=== PATIENT | female | born 1950 | race Caucasian/White ===

== ENCOUNTER 2024-09-06 16:36 | Observation (INO) | payer MEDICARE, OTHER ==
--- NOTE | 2024-09-06 17:03 | ED ---
Skin/Abscess/FB HPI - General Source: patient, family, RN notes reviewed Mode of arrival: ambulatory Limitations: no limitations <Jaqueline Hagan - Last Filed: 09/06/24 17:04> - General Source: patient, family, RN notes reviewed, old records reviewed Mode of arrival: ambulatory Limitations: no limitations - History of Present Illness MD complaint: rash, discoloration, other (Swelling and erythema left lower extremity) -: days(s) Location: LLE, L foot Severity: severe Severity scale (1-10): 10 Quality: aching Consistency: constant Improves with: none Worsens with: none Context: recent illness Associated symptoms: chills, nausea, arthralgias, myalgias Treatments Prior to Arrival: none <Rajendra Barillas - Last Filed: 09/12/24 19:48> - General Chief complaint: Skin/Abscess/Foreign Body Stated complaint: Left Leg Pain Time Seen by Provider: 09/06/24 16:50 - History of Present Illness Initial comments: Quick [id number] female with history of PAD and femoral bypass presenting for complaints of left lower extremity pain, erythema, edema started yesterday evening. Daughter states that patient recently had cellulitis of the left lower extremity and was admitted to the hospital for multiple days due to this. Patient denies fevers, chills, nausea or vomiting. Patient has history of blood clots and denies chest pain or difficulty breathing. (Jaqueline Hagan) This is a 74-year-old female to the ER for evaluation. Patient coming in with severe left lower extremity pain redness and swelling with history of recurrent cellulitis in his left leg. Patient is on blood thinners with prior history of blood clots (Rajendra Barillas) - Related Data Home Medications Medication Instructions Recorded Confirmed Clopidogrel [Plavix] 75 mg PO DAILY 08/12/24 09/07/24 Furosemide [Lasix] 40 mg PO DAILY 08/12/24 09/07/24 Gabapentin [Neurontin] 100 mg PO BID PRN 08/12/24 09/07/24 Gabapentin [Neurontin] 200 mg PO HS PRN 08/12/24 09/07/24 Pantoprazole Sodium [Protonix] 20 mg PO DAILY 08/12/24 09/07/24 Potassium Chloride ER [K-Dur 10] 10 meq PO DAILY 08/12/24 09/07/24 Pramipexole [Mirapex] 0.5 mg PO TID 08/12/24 09/07/24 Rosuvastatin Calcium 5 mg PO HS 08/12/24 09/07/24 Trihexyphenidyl [Artane] 2 mg PO BID 08/12/24 09/07/24 hydrOXYzine HCL [Atarax] 25 mg PO TID PRN 08/12/24 09/07/24 Previous Rx's Medication Instructions Recorded Cephalexin [Keflex] 500 mg PO Q8HR 7 Days #21 cap 09/11/24 HYDROcodone/APAP 5-325MG [[place] 1 each PO Q6HR PRN 3 Days #12 tab 09/11/24 5-325] Allergies Allergy/AdvReac Type Severity Reaction Status Date / Time ibuprofen Allergy Anaphylaxis Verified 09/07/24 11:46 Review of Systems ROS Other: All systems not noted in ROS Statement are negative. <Jaqueline Hagan - Last Filed: 09/06/24 17:04> ROS Other: All systems not noted in ROS Statement are negative. <Rajendra Barillas - Last Filed: 09/12/24 19:48> ROS Statement: Those systems with pertinent positive or pertinent negative responses have been documented in the HPI. Past Medical History Past Medical History: Hyperlipidemia, Hypertension Additional Past Medical History / Comment(s): right above the knee amuptation, RLS, tremors, Parkinsons. Bilateral lower extremity peripheral vascular disease. History of Any Multi-Drug Resistant Organisms: None Reported Additional Past Surgical History / Comment(s): Femoral to femoral bypass (occluded). Right [id number] amputation. Past Psychological History: Anxiety Smoking Status: Former smoker Past Alcohol Use History: None Reported Past Drug Use History: None Reported <Jaqueline Hagan - Last Filed: 09/06/24 17:04> General Exam Limitations: no limitations <Jaqueline Hagan - Last Filed: 09/06/24 17:04> General appearance: alert, in no apparent distress Head exam: Present: atraumatic, normocephalic, normal inspection Eye exam: Present: normal appearance, PERRL, EOMI. Absent: scleral icterus, conjunctival injection, periorbital swelling ENT exam: Present: normal exam, mucous membranes moist Neck exam: Present: normal inspection. Absent: tenderness, meningismus, lymphadenopathy Respiratory exam: Present: normal lung sounds bilaterally. Absent: respiratory distress, wheezes, rales, rhonchi, stridor Cardiovascular Exam: Present: regular rate, normal rhythm, normal heart sounds. Absent: systolic murmur, diastolic murmur, rubs, gallop, clicks GI/Abdominal exam: Present: soft, normal bowel sounds. Absent: distended, tenderness, guarding, rebound, rigid Extremities exam: Present: normal inspection, full ROM, normal capillary refill. Absent: tenderness, pedal edema, joint swelling, calf tenderness Back exam: Present: normal inspection Neurological exam: Present: alert, oriented X3, CN II-XII intact Psychiatric exam: Present: normal affect, normal mood Skin exam: Present: warm, dry, intact, normal color. Absent: rash <Rajendra Barillas Last Filed: 09/12/24 19:48> - General Exam Comments Initial Comments: Visual Physical Exam Vital signs reviewed General: Well-appearing, nontoxic, no acute distress. Head: Normocephalic, atraumatic Eyes: PERRLA, EOMI ENT: Airway patent Chest: Nonlabored breathing Skin: No visual rash, normal skin tone Neuro: Alert and oriented 3 Musculoskeletal: No gross abnormalities (Stieler,Jaqueline) Course <Rajendra Barillas - Last Filed: 09/12/24 19:48> Vital Signs 09/06/24 09/07/24 09/07/24 16:45 00:10 00:13 Temperature 98.4 F 98.8 F Pulse Rate 80 86 Pulse Rate [ Pulse Oximetery ] Respiratory 18 17 Rate Blood Pressure 86/53 76/38 Blood Pressure [Left Arm] O2 Sat by Pulse 98 Oximetry 09/07/24 09/07/24 09/07/24 00:25 00:37 00:46 Temperature 98.6 F Pulse Rate 76 89 86 Pulse Rate [ Pulse Oximetery ] Respiratory 18 16 16 Rate Blood Pressure 86/50 126/56 122/62 Blood Pressure [Left Arm] O2 Sat by Pulse 94 L 94 L 98 Oximetry 09/07/24 09/07/24 09/07/24 02:41 04:46 07:43 Temperature 98.4 F 98.4 F Pulse Rate 75 86 79 Pulse Rate [ Pulse Oximetery ] Respiratory 16 16 20 Rate Blood Pressure 107/49 124/73 123/61 Blood Pressure [Left Arm] O2 Sat by Pulse 98 98 100 Oximetry 09/07/24 09/07/24 11:00 21:36 Temperature 98.2 F 98.5 F Pulse Rate 86 Pulse Rate [ 82 Pulse Oximetery ] Respiratory 16 16 Rate Blood Pressure 125/65 Blood Pressure 112/64 [Left Arm] O2 Sat by Pulse 95 96 Oximetry - Reevaluation(s) Reevaluation #1: 09/07/24 03:12 Medical records reviewed (Rajendra Barillas) Reevaluation #2: 09/07/24 03:12 Patient symptoms unchanged (Rajendra Barillas) Reevaluation #3: 09/07/24 03:12 Patient informed of results questions answered (Rajendra Barillas) Reevaluation #4: Was pt. sent in by a medical professional or institution (, PA, FIRE INVESTIGATION MANAGER, urgent care, hospital, or halfway...) When possible be specific @ -no Did you speak to anyone other than the patient for history (EMS, parent, family, police, friend...)? What history was obtained from this source @ -no Did you review nursing and triage notes (agree or disagree)? Why? @ -agree Are old charts reviewed (outside hosp., previous admission, EMS record, old EKG, old radiological studies, urgent care reports/EKG's, halfway records)? Report findings @ -yes Differential Diagnosis (chest pain, altered mental status, abdominal pain women, abdominal pain men, vaginal bleeding, weakness, fever, dyspnea, syncope, headache, dizziness, GI bleed, back pain, seizure, CVA, palpatations, mental health, musculoskeletal)? @ -prior EKG interpreted by me (3pts min.). @ -yes X-rays interpreted by me (1pt min.). @ -yes negative for acute disease CT interpreted by me (1pt min.). @ -no U/S interpreted by me (1pt. min.). @ -yes negative for acute disease What testing was considered but not performed or refused? (CT, X-rays, U/S, labs)? Why? @ -none What meds were considered but not given or refused? Why? @ -none Did you discuss the management of the patient with other professionals (professionals i.e. DrChristian, PA, FIRE INVESTIGATION MANAGER, lab, RT, psych nurse, social insurance specialist, vice president of product marketing, teacher, police patrol officer, skilled nursing case manager)? Give summary @ -no Was smoking cessation discussed for >3mins.? @ -no Was critical care preformed (if so, how long)? @ -no Were there social determinants of health that impacted care today? How? (Homelessness, low income, unemployed, alcoholism, drug addiction, transportation, low edu. Level, literacy, decrease access to med. care, skilled nursing, rehab)? @ -none Was there de-escalation of care discussed even if they declined (Discuss DNR or withdrawal of care, Hospice)? DNR status @ -no What co-morbidities impacted this encounter? (DM, HTN, Smoking, COPD, CAD, Cancer, CVA, ARF, Chemo, Hep., AIDS, mental health diagnosis, sleep apnea, morbid obesity)? @ -none Was patient admitted / discharged? Hospital course, mention meds given and route, prescriptions, significant lab abnormalities, going to OR and other pertinent info. @ - 74 female with severe left lower extremity cellulitis and infection, patient placed on IV antibiotics, x-ray and ultrasound left lower extremity are negative and patient will admit for IV antibiotics for severe cellulitis with history of severe PAD Admitted Undiagnosed new problem with uncertain prognosis? @ -no Drug Therapy requiring intensive monitoring for toxicity (Heparin, Nitro, Insulin, Cardizem)? @ -no Were any procedures done? @ -no Diagnosis/symptom? @ -Severe lower extremity cellulitis Acute, or Chronic, or Acute on Chronic? @ -Acute Uncomplicated (without systemic symptoms) or Complicated (systemic symptoms)? @ -Complicated Side effects of treatment? @ -no Exacerbation, Progression, or Severe Exacerbation? @ -exacerbation Poses a threat to life or bodily function? How? (Chest pain, USA, SC, pneumonia, PE, COPD, DKA, ARF, appy, cholecystitis, CVA, Diverticulitis, Homicidal, Suicidal, threat to staff... and all critical care pts) @ -yes extremes of age 46 (Rajendra Barillas) - Consultations Consultation #1: Spoke with [facility] who agrees to admit this patient (Rajendra Barillas) Medical Decision Making <Jaqueline Hagan - Last Filed: 09/06/24 17:04> - Lab Data Result diagrams: 09/11/24 03:09 09/11/24 03:09 - EKG Data -: EKG Interpreted by Me (EKG is sinus 82 WV 160 QRS 91 QTc 414) - Radiology Data Radiology results: report reviewed (X-ray left lower extremity, ultrasound left lower extremity for DVT is negative), image reviewed <Rajendra Barillas - Last Filed: 09/12/24 19:48> - Medical Decision Making I completed the quick note portion of this chart signed Jaqueline Hagan PA-C (Jaqueline Hagan) 74 female with severe left lower extremity cellulitis and infection, patient placed on IV antibiotics, x-ray and ultrasound left lower extremity are negative and patient will admit for IV antibiotics for severe cellulitis with history of severe PAD (Rajendra Barillas) - Lab Data Lab Results 09/06/24 09/06/24 09/06/24 Range/Units 18:57 18:57 18:57 WBC 16.07 H (4.50-10.00) 10*3/uL RBC 4.76 (4.10-5.20) 10*6/uL Hgb 14.2 (12.0-15.0) g/dL Hct 42.0 (37.2-46.3) % MCV 88.2 (80.0-97.0) fL MCH 29.8 (27.0-32.0) pg MCHC 33.8 (32.0-37.0) g/dL Plt Count 100 L (140-440) 10*3/uL MPV 9.1 L (9.5-12.2) fL Immature Gran % (Auto) 0.6 % Neutrophils % 91.6 % Lymphocytes % 4.4 % Monocytes % 2.9 % Eosinophils % 0.1 % Basophils % 0.4 % Immature Gran # 0.09 H (0.00-0.04) 10*3/uL Neutrophils # 14.73 H (1.80-7.70) 10*3/uL Lymphocytes # 0.71 L (0.90-5.00) 10*3/uL Monocytes # 0.46 (0.20-1.00) 10*3/uL Eosinophils # 0.01 L (0.04-0.35) 10*3/uL Basophils # 0.07 (0.00-0.10) 10*3/uL Manual Slide Review Performed Immature Plt Fraction 1.6 (1.1-6.1) % Sodium 134 L (137-145) mmol/L Potassium 4.2 (3.5-5.1) mmol/L Chloride 103 (98-107) mmol/L Carbon Dioxide 22 (22-30) mmol/L Anion Gap 9 mmol/L BUN 12 (7-17) mg/dL Creatinine 0.61 (0.52-1.04) mg/dL Est GFR (CKD-EPI)AfAm >90 (>60 ml/min/1.73 sqM) Est GFR (CKD-EPI)NonAf 88 (>60 ml/min/1.73 sqM) Glucose 163 H (74-99) mg/dL Lactic Ac Sepsis Rflx Plasma Lactic Acid Ron 2.1 H* (0.7-2.0) mmol/L Calcium 9.9 (8.4-10.2) mg/dL Phosphorus (2.5-4.5) mg/dL Magnesium (1.6-2.3) mg/dL Total Bilirubin 1.1 (0.2-1.3) mg/dL AST 29 (14-36) U/L ALT 26 (4-34) U/L Alkaline Phosphatase 79 (38-126) U/L C-Reactive Protein 0.9 (<1.0) mg/dL Total Protein 6.5 (6.3-8.2) g/dL Albumin 4.1 (3.5-5.0) g/dL 09/06/24 09/07/24 Range/Units 19:55 00:00 WBC (4.50-10.00) 10*3/uL RBC (4.10-5.20) 10*6/uL Hgb (12.0-15.0) g/dL Hct (37.2-46.3) % MCV (80.0-97.0) fL MCH (27.0-32.0) pg MCHC (32.0-37.0) g/dL Plt Count (140-440) 10*3/uL MPV (9.5-12.2) fL Immature Gran % (Auto) % Neutrophils % % Lymphocytes % % Monocytes % % Eosinophils % % Basophils % % Immature Gran # (0.00-0.04) 10*3/uL Neutrophils # (1.80-7.70) 10*3/uL Lymphocytes # (0.90-5.00) 10*3/uL Monocytes # (0.20-1.00) 10*3/uL Eosinophils # (0.04-0.35) 10*3/uL Basophils # (0.00-0.10) 10*3/uL Manual Slide Review Immature Plt Fraction (1.1-6.1) % Sodium (137-145) mmol/L Potassium (3.5-5.1) mmol/L Chloride (98-107) mmol/L Carbon Dioxide (22-30) mmol/L Anion Gap mmol/L BUN (7-17) mg/dL Creatinine (0.52-1.04) mg/dL Est GFR (CKD-EPI)AfAm (>60 ml/min/1.73 sqM) Est GFR (CKD-EPI)NonAf (>60 ml/min/1.73 sqM) Glucose (74-99) mg/dL Lactic Ac Sepsis Rflx Y Plasma Lactic Acid Ron (0.7-2.0) mmol/L Calcium (8.4-10.2) mg/dL Phosphorus 3.6 (2.5-4.5) mg/dL Magnesium 1.7 (1.6-2.3) mg/dL Total Bilirubin (0.2-1.3) mg/dL AST (14-36) U/L ALT (4-34) U/L Alkaline Phosphatase (38-126) U/L C-Reactive Protein (<1.0) mg/dL Total Protein (6.3-8.2) g/dL Albumin (3.5-5.0) g/dL Disposition <Jaqueline Hagan - Last Filed: 09/06/24 17:04> Is patient prescribed a controlled substance at d/c from ED?: No Time of Disposition: 01:00 <Rajendra Barillas - Last Filed: 09/12/24 19:48> Clinical Impression: Cellulitis of left leg, Cellulitis Disposition: ADMITTED IP TO THIS HOSP Condition: Fair
[2024-09-06 19:06] LABS: Basophils # (A) 0.07 10*3/uL (0.00-0.10); Basophils % (A) 0.4 %; Eosinophils # (A) 0.01 10*3/uL (0.04-0.35); Eosinophils % (A) 0.1 %; HGB 14.2 g/dL (12.0-15.0); Immature Platelet Fraction 1.6 % (1.1-6.1); Lymphocytes # (A) 0.71 10*3/uL (0.90-5.00); Lymphocytes % (A) 4.4 %; MCH 29.8 pg (27.0-32.0); MCHC 33.8 g/dL (32.0-37.0); MCV 88.2 fL (80.0-97.0); Mean Platelet Volume 9.1 fL (9.5-12.2); Monocytes # (A) 0.46 10*3/uL (0.20-1.00); Monocytes % (A) 2.9 %; Neutrophils # (A) 14.73 10*3/uL (1.80-7.70); Neutrophils % (A) 91.6 %; Platelet Count 100 10*3/uL (140-440); RBC 4.76 10*6/uL (4.10-5.20); RDW 13.5 % (11.5-14.5); WBC 16.07 10*3/uL (4.50-10.00)
[2024-09-06 19:24] LABS: ALT 26 U/L (4-34); AST 29 U/L (14-36); African American GFR (CKD) >90 (>60 ml/min/1.73 sqM); Albumin 4.1 g/dL (3.5-5.0); Alkaline Phosphatase 79 U/L (38-126); Anion Gap 9 mmol/L; Blood Urea Nitrogen 12 mg/dL (7-17); C Reactive Protein 0.9 mg/dL (<1.0); Calcium 9.9 mg/dL (8.4-10.2); Carbon Dioxide 22 mmol/L (22-30); Chloride 103 mmol/L (98-107); Glucose 163 mg/dL (74-99); Non-African American GFR(CKD) 88 (>60 ml/min/1.73 sqM); Potassium 4.2 mmol/L (3.5-5.1); Sodium 134 mmol/L (137-145); Total Bilirubin 1.1 mg/dL (0.2-1.3); Total Protein 6.5 g/dL (6.3-8.2)
[2024-09-06] MEDS ORDERED: VANCOMYCIN IV PER PHARMACY 1 EACH MISC MISCELLANE PRN (22:19)
[2024-09-06] MEDS: SODIUM CHLORIDE 0.9% 1,000 ML IV SCH (23:51)
[2024-09-07] MEDS: VANCOMYCIN 1,250 MG in SODIUM CHLORIDE 0.9% 250 ML IVPB SCH (00:23)
--- NOTE | 2024-09-07 00:25 | US ---
Exam: US VENOUS LEFT LOWER EXTREMITY DATE OF EXAM: 09/06/2024 11:17 PM COMPARISON: 08/12/24 CLINICAL INDICATION: Female, 74 years old with history of pain; patient states left leg pain, swelling and redness in calf. Hx right leg amputee. States hx of DVT. Not on thinners, Pain TECHNIQUE: The lower extremity deep venous system is examined utilizing real time linear array sonography with graded compression, color doppler sonography, and spectral doppler. 16 images SIDE PERFORMED: Left FINDINGS: VESSELS IMAGED: Femoral Vein Popliteal Vein Small Saphenous Vein * Proximal Calf Veins (* superficial vessels) patient scanned in wheelchair with shorts on. Exam is limited Left Leg: exam begins at the proximal femoral vein due to above limitations. Appears negative for DVT as best visualized, Color Doppler imaging shows patency of the vessels. Spectral waveforms are within normal limits. Impression: No DVT
--- NOTE | 2024-09-07 00:34 | XR ---
EXAM: XR Left Tibia and Fibula, 2 Views CLINICAL HISTORY: ED for c/o redness and swelling to left leg starting today. TECHNIQUE: Frontal and lateral views of the left tibia and fibula. COMPARISON: No relevant prior studies available. FINDINGS: Bones/joints: Osteopenia. No fracture or dislocation. Soft tissues: Moderate diffuse subcutaneous soft tissue edema. No radiopaque foreign body. Vasculature: Peripheral vascular calcifications. IMPRESSION: Moderate diffuse subcutaneous soft tissue edema
[2024-09-07 00:35] LABS: Magnesium 1.7 mg/dL (1.6-2.3); Phosphorus 3.6 mg/dL (2.5-4.5)
[2024-09-07] MEDS ORDERED: NALOXONE 0.4 MG/ML 1 ML VIAL IV PRN (01:54)
[2024-09-07] MEDS ORDERED: MORPHINE SULFATE 4 MG/ML SYRINGE IV PRN (01:54)
[2024-09-07] MEDS ORDERED: ONDANSETRON 4 MG/2 ML VIAL IVP PRN (01:54)
[2024-09-07] MEDS ORDERED: ACETAMINOPHEN TAB 500 MG TAB PO PRN (11:27)
[2024-09-07] MEDS ORDERED: GABAPENTIN 100 MG CAP PO PRN (12:20)
[2024-09-07] MEDS ORDERED: hydrOXYzine HCL 25 MG TAB PO PRN (12:20)
[2024-09-07] MEDS: ATORVASTATIN 10 MG TAB PO SCH (12:36)
[2024-09-07] MEDS: CLOPIDOGREL 75 MG TAB PO SCH (12:36)
[2024-09-07] MEDS: MORPHINE SULFATE 2 MG/ML SYRINGE IVP PRN (12:37)
[2024-09-07] MEDS: PRAMIPEXOLE 0.5 MG TAB PO SCH (16:08)
--- NOTE | 2024-09-07 16:08 | P.HPIM ---
History of Present Illness H&P Date: 09/07/24 History of present illness: This is a 74-year-old female with past medical history significant for pe ripheral arterial disease, femoral bypass, hypertension, hyperlipidemia, right AKA, RLS, Parkinson disease who presented to ER with a complaint of left lower extremity swelling pain and edema, tenderness for the last few days. Patient recently had cellulitis of left lower extremity, was admitted to hospital for multiple days and was discharged home. Now presented again with worsening lower extremity pain and swelling redness and tenderness. Patient denied any fever or chills. Patient is afebrile, heart rate 82, respiratory rate 16, blood pressure 112/64, saturating 95% on room air. WBC 16.07, hemoglobin 14.2, platelet 100. BMP unremarkable. Lactic acid 2.1. 45 unremarkable. X-ray left lower extremity showed soft tissue edema Ultrasound venous negative for DVT. Assessment and plan: Left lower extremity cellulitis: Recently admitted for left lower extremity cellulitis, required IV antibiotics Now presented again with left lower extremity swelling, pain, redness, warmth. Monitor vitals and labs. Antibiotics cefazolin Infectious disease consulted Elevate lower extremity Peripheral arterial disease: Hypertension Restless leg syndrome Hyperlipidemia Neuropathy Continue home meds Thrombocytopenia: Secondary toAbove, reactive Monitor CBC DVT prophylaxis Subcutaneous Lovenox Monitor vital signs and labs Labs and medication were reviewed. Continue same treatment. Further recommendations as per clinical course of the patient PHYSICAL EXAMINATION: GENERAL: The patient is A&O x3, NAD HEENT: EOMI, Sclerae anicteric, Moist Mucous membranes Neck: Supple, Non tender, No JVD PULMONARY: Equal breath souds B/L, No wheezing, No crackles. CARDIOVASCULAR: S1, S2 present. No murmurs, rubs, or gallops. ABDOMEN: Soft, nontender, nondistended, normoactive bowel sounds. No guarding or rebound tenderness. MUSCULOSKELETAL: Left lower extremity edema, erythema, warmth, tenderness, extending from dorsum of foot to below knee. NEUROLOGICAL: CN 2-12 grossly intact. No FND REVIEW OF SYSTEMS: CONSTITUTIONAL: Complaining of fatigue. HEENT: No recent visual problems or hearing problems. Denied any sore throat. CARDIOVASCULAR: No chest pain, orthopnea, PND, no palpitations, no syncope. PULMONARY: No shortness of breath, no cough, no hemoptysis. GASTROINTESTINAL: No diarrhea, no nausea, no vomiting, no abdominal pain. NEUROLOGICAL: No headaches, no weakness, no numbness. HEMATOLOGICAL: Denies any bleeding or petechiae. GENITOURINARY: Denies any burning micturition, frequency, or urgency. MUSCULOSKELETAL/RHEUMATOLOGICAL: Complaining of left lower extremity swelling, pain, warmth, tenderness. ENDOCRINE: Denies any polyuria or polydipsia. The rest of the 14-point review of systems is negative. Dictation was produced using [employer] software. please excuse any grammatical, word or spelling errors. Past Medical History Past Medical History: Hyperlipidemia, Hypertension Additional Past Medical History / Comment(s): right above the knee amuptation, RLS, tremors, Parkinsons. Bilateral lower extremity peripheral vascular disease. History of Any Multi-Drug Resistant Organisms: None Reported Additional Past Surgical History / Comment(s): Femoral to femoral bypass (occluded). Right [id number] amputation. Past Psychological History: Anxiety Smoking Status: Former smoker Past Alcohol Use History: None Reported Past Drug Use History: None Reported Medications and Allergies Home Medications Medication Instructions Recorded Confirmed Type Clopidogrel [Plavix] 75 mg PO DAILY 08/12/24 09/07/24 History Furosemide [Lasix] 40 mg PO DAILY 08/12/24 09/07/24 History Gabapentin [Neurontin] 100 mg PO BID PRN 08/12/24 09/07/24 History Gabapentin [Neurontin] 200 mg PO HS PRN 08/12/24 09/07/24 History Pantoprazole Sodium [Protonix] 20 mg PO DAILY 08/12/24 09/07/24 History Potassium Chloride ER [K-Dur 10] 10 meq PO DAILY 08/12/24 09/07/24 History Pramipexole [Mirapex] 0.5 mg PO TID 08/12/24 09/07/24 History Rosuvastatin Calcium 5 mg PO HS 08/12/24 09/07/24 History Trihexyphenidyl [Artane] 2 mg PO BID 08/12/24 09/07/24 History hydrOXYzine HCL [Atarax] 25 mg PO TID PRN 08/12/24 09/07/24 History Allergies Allergy/AdvReac Type Severity Reaction Status Date / Time ibuprofen Allergy Anaphylaxis Verified 09/07/24 11:46 Physical Exam Vitals: Vital Signs Temp Pulse Pulse Resp BP BP Pulse Ox 09/07/24 11:00 98.2 F 82 16 112/64 95 09/07/24 07:43 98.4 F 79 20 123/61 100 09/07/24 04:46 98.4 F 86 16 124/73 98 09/07/24 02:41 75 16 107/49 98 09/07/24 00:46 86 16 122/62 98 09/07/24 00:37 89 16 126/56 94 L 09/07/24 00:25 98.6 F 76 18 86/50 94 L 09/07/24 00:13 98.8 F 09/07/24 00:10 86 17 76/38 09/06/24 16:45 98.4 F 80 18 86/53 98 Results CBC & Chem 7: 09/06/24 18:57 09/06/24 18:57 Labs: Abnormal Lab Results - Last 24 Hours (Table) 09/06/24 09/06/24 09/06/24 Range/Units 18:57 18:57 18:57 WBC 16.07 H (4.50-10.00) 10*3/uL Plt Count 100 L (140-440) 10*3/uL MPV 9.1 L (9.5-12.2) fL Immature Gran # 0.09 H (0.00-0.04) 10*3/uL Neutrophils # 14.73 H (1.80-7.70) 10*3/uL Lymphocytes # 0.71 L (0.90-5.00) 10*3/uL Eosinophils # 0.01 L (0.04-0.35) 10*3/uL Sodium 134 L (137-145) mmol/L Glucose 163 H (74-99) mg/dL Plasma Lactic Acid Ron 2.1 H* (0.7-2.0) mmol/L
[2024-09-07] MEDS: HYDROcodone/APAP 5-325MG 1 EACH TAB PO PRN (16:18)
[2024-09-07] MEDS: ENOXAPARIN 40 MG/0.4 ML SYRINGE SQ SCH (17:18)
--- NOTE | 2024-09-07 23:01 | P.CONS ---
History of Present Illness - Reason for Consult Consult date: 09/07/24 Left leg cellulitis Requesting physician: Germán Fitch - Chief Complaint Left leg swelling and redness x 1 day - History of Present Illness Patient is a 74-year-old female with a past medical history significant for hypertension hyperlipidemia Parkinson disease previous history of right lfmiq-ect-[id number] amputation because of nonhealing persistent knee infection and did have a history of recurrent left lower extremity cellulitis patient has been brought into the hospital concerning for increasing swelling and redness to the left lower extremity that apparently started the day before presentation to the hospital patient denies any history of any trauma she did have diffuse swelling redness that progressed rather quickly did have a dull aching pain to the left leg moderate intensity without radiation patient currently do not have any skin breakdown or open wound or any drainage patient on presentation to the hospital was afebrile and no fever Hemoccult subsequently patient was not tachycardic hypotensive or hypoxic she did have a white count of 16.07 with a left shift creatinine 0.61 lactic acid 2.1 liver enzymes are normal patient did have left leg Doppler was negative for DVT x-rays were negative patient was admitted to the hospital she was started on vancomycin infectious disease was consulted for further management of antibiotic therapy Review of Systems Positive point and negatives has been mentioned in the HPI, complete review of systems was performed and all other systems are negative Past Medical History Past Medical History: Hyperlipidemia, Hypertension Additional Past Medical History / Comment(s): right above the knee amuptation, RLS, tremors, Parkinsons. Bilateral lower extremity peripheral vascular disease. History of Any Multi-Drug Resistant Organisms: None Reported Additional Past Surgical History / Comment(s): Femoral to femoral bypass (occluded). Right xxyzs-tul-vxnx amputation. Past Psychological History: Anxiety Smoking Status: Former smoker Past Alcohol Use History: None Reported Past Drug Use History: None Reported Medications and Allergies Home Medications Medication Instructions Recorded Confirmed Type Clopidogrel [Plavix] 75 mg PO DAILY 08/12/24 09/07/24 History Furosemide [Lasix] 40 mg PO DAILY 08/12/24 09/07/24 History Gabapentin [Neurontin] 100 mg PO BID PRN 08/12/24 09/07/24 History Gabapentin [Neurontin] 200 mg PO HS PRN 08/12/24 09/07/24 History Pantoprazole Sodium [Protonix] 20 mg PO DAILY 08/12/24 09/07/24 History Potassium Chloride ER [K-Dur 10] 10 meq PO DAILY 08/12/24 09/07/24 History Pramipexole [Mirapex] 0.5 mg PO TID 08/12/24 09/07/24 History Rosuvastatin Calcium 5 mg PO HS 08/12/24 09/07/24 History Trihexyphenidyl [Artane] 2 mg PO BID 08/12/24 09/07/24 History hydrOXYzine HCL [Atarax] 25 mg PO TID PRN 08/12/24 09/07/24 History Allergies Allergy/AdvReac Type Severity Reaction Status Date / Time ibuprofen Allergy Anaphylaxis Verified 09/07/24 11:46 Physical Exam Vitals: Vital Signs Temp Pulse Pulse Resp BP BP Pulse Ox 09/07/24 11:00 98.2 F 82 16 112/64 95 09/07/24 07:43 98.4 F 79 20 123/61 100 09/07/24 04:46 98.4 F 86 16 124/73 98 09/07/24 02:41 75 16 107/49 98 09/07/24 00:46 86 16 122/62 98 09/07/24 00:37 89 16 126/56 94 L 09/07/24 00:25 98.6 F 76 18 86/50 94 L 09/07/24 00:13 98.8 F 09/07/24 00:10 86 17 76/38 09/06/24 16:45 98.4 F 80 18 86/53 98 Intake and Output 09/06/24 09/07/24 09/07/24 22:59 06:59 14:59 Other: Weight 63.503 kg GENERAL DESCRIPTION: Elderly female lying in bed, no distress. No tachypnea or accessory muscle of respiration use. HEENT: Shows Pallor , no scleral icterus. Oral mucous membrane is dry. No pharyngeal erythema or thrush NECK: Trachea central, no thyromegaly. LUNGS: Unlabored breathing. Clear to auscultation anteriorly. No wheeze or crackle. HEART: S1, S2, regular rate and rhythm. No loud murmur ABDOMEN: Soft, no tenderness , guarding or rigidity, no organomegaly EXTREMITIES: Left leg with diffuse swelling and redness did not have any open wound or athlete's foot SKIN: No rash, no masses palpable. NEUROLOGICAL: The patient is awake, alert, oriented x3, mood and affect normal. Results CBC & Chem 7: 09/08/24 05:13 09/08/24 05:13 Labs: Abnormal Lab Results - Last 24 Hours (Table) 09/06/24 09/06/24 09/06/24 Range/Units 18:57 18:57 18:57 WBC 16.07 H (4.50-10.00) 10*3/uL Plt Count 100 L (140-440) 10*3/uL MPV 9.1 L (9.5-12.2) fL Immature Gran # 0.09 H (0.00-0.04) 10*3/uL Neutrophils # 14.73 H (1.80-7.70) 10*3/uL Lymphocytes # 0.71 L (0.90-5.00) 10*3/uL Eosinophils # 0.01 L (0.04-0.35) 10*3/uL Sodium 134 L (137-145) mmol/L Glucose 163 H (74-99) mg/dL Plasma Lactic Acid Ron 2.1 H* (0.7-2.0) mmol/L Assessment and Plan (1) Sepsis Current Visit: Yes Status: Acute Code(s): A41.9 - SEPSIS, UNSPECIFIED ORGANISM SNOMED Code(s): 11862433 (2) Cellulitis of left leg Current Visit: Yes Status: Acute Code(s): L03.116 - CELLULITIS OF LEFT LOWER LIMB SNOMED Code(s): 18920844178192549 Plan: 1patient presenting to the hospital with sepsis in this patient who did have elevated white count elevated lactic acid meeting criteria for SIRS/sepsis s ource is acute left lower extremity cellulitis with diffuse swelling redness likely streptococcal disease 2-risk factors include swelling to the left lower extremity Doppler was negative for DVT 3-discontinue vancomycin 4-will start the patient on cefazolin 2 g every 8 hours 5-Norman wrap to the left lower extremity to get the swelling down Multiple question concern answered We will follow on clinical condition and cultures to further adjust medication if needed Thank you for this consultation we will follow the patient along with you Dictation was produced using [employer] software. please excuse any grammatical, word or spelling errors. Time with Patient: Greater than 30
[2024-09-07] MEDS: TRIHEXYPHENIDYL 2 MG TAB PO SCH (23:05)
[2024-09-08 08:26] LABS: HCT 38.4 % (37.2-46.3); HGB 12.6 g/dL (12.0-15.0); MCH 30.2 pg (27.0-32.0); MCHC 32.8 g/dL (32.0-37.0); MCV 92.1 FL (80.0-97.0); NRBC Per 100 WBC 0 X 10*3/uL (0.00-0.01); Platelet Count 87 X 10*3/uL (140-440); RBC 4.17 X 10*6/uL (4.10-5.20); RDW 14.1 % (11.5-14.5); WBC 14.03 X 10*3/uL (4.50-10.00)
[2024-09-08 08:38] LABS: ALT 25 U/L (8-44); AST 33 U/L (13-35); Albumin 3.5 g/dL (3.8-4.9); Albumin/Globulin Ratio 1.94 Ratio (1.60-3.17); Alkaline Phosphatase 91 U/L (41-126); BUN/Creat Ratio 12.86 Ratio (12.00-20.00); Calcium 8.5 mg/dL (8.7-10.3); Carbon Dioxide 24.1 mmol/L (21.6-31.8); Chloride 107 mmol/L (96-109); Globulin 1.8 g/dL (1.6-3.3); Glucose 112 mg/dL (70-110); Magnesium 1.8 mg/dL (1.5-2.4); Phosphorus 2.8 mg/dL (2.4-5.1); Potassium 3.9 mmol/L (3.5-5.5); Sodium 139 mmol/L (135-145); Total Bilirubin 0.2 mg/dL (0.3-1.2); Total Protein 5.3 g/dL (6.2-8.2)
[2024-09-08 10:12] LABS: Basophils # (A) 0.08 X 10*3/uL (0.00-0.10); Basophils % (A) 0.6 %; Crenated RBC 2+ (None Seen); Eosinophils # (A) 0.42 X 10*3/uL (0.04-0.35); Lymphocytes # (A) 1.25 X 10*3/uL (0.90-5.00); Lymphocytes % (A) 8.9 %; Monocytes # (A) 0.65 X 10*3/uL (0.20-1.00); Monocytes % (A) 4.6 %; Neutrophils # (A) 11.52 X 10*3/uL (1.80-7.70); Neutrophils % (A) 82.1 %
[2024-09-08] MEDS: PANTOPRAZOLE 40 MG TABLET PO SCH (10:13)
--- NOTE | 2024-09-08 14:36 | P.PN ---
Subjective Progress Note Date: 09/08/24 74-year-old female with past medical history significant for peripheral arterial disease, femoral bypass, hypertension, hyperlipidemia, right AKA, RLS, Parkinson disease who presented to ER with a complaint of left lower extremity swelling pain and edema, tenderness for the last few days. Patient recently had cellulitis of left lower extremity, was admitted to hospital for multiple days and was discharged home. Now presented again with worsening lower extremity pain and swelling redness and tenderness. Patient denied any fever or chills. Patient is afebrile, heart rate 82, respiratory rate 16, blood pressure 112/64, saturating 95% on room air. WBC 16.07, hemoglobin 14.2, platelet 100. BMP unremarkable. Lactic acid 2.1. 45 unremarkable. X-ray left lower extremity showed soft tissue edema Ultrasound venous negative for DVT. 09/08. Patient seen examined. States left lower extremity pain has improved. Denies any fever or chills. REVIEW OF SYSTEMS: CONSTITUTIONAL: No fever, no malaise,. CARDIOVASCULAR: No chest pain, no palpitations, no syncope. PULMONARY: No shortness of breath, no cough, GASTROINTESTINAL: No diarrhea, no nausea, no vomiting, no abdominal pain. NEUROLOGICAL: No headaches, no weakness, PHYSICAL EXAMINATION: GENERAL: The patient is alert and oriented x3, not in any acute distress. Well developed, well nourished. HEENT: Pupils are round and equally reacting to light. EOMI. No scleral icterus. No conjunctival pallor. Normocephalic, atraumatic. No pharyngeal erythema. No thyromegaly. CARDIOVASCULAR: S1 and S2 present. No murmurs, rubs, or gallops. PULMONARY: Chest is clear to auscultation, no wheezing or crackles. ABDOMEN: Soft, nontender, nondistended, normoactive bowel sounds. No palpable organomegaly. MUSCULOSKELETAL: Right AKA, left lower extremity erythema EXTREMITIES: No cyanosis, clubbing, or pedal edema. NEUROLOGICAL: Gross neurological examination did not reveal any focal deficits. SKIN: No rashes. Assessment and plan Left lower extremity cellulitis: Recently admitted for left lower extremity cellulitis, required IV antibiotics Now presented again with left lower extremity swelling, pain, redness, warmth. Monitor vitals and labs. Antibiotics cefazolin Infectious disease consulted Elevate lower extremity Peripheral arterial disease: Hypertension Restless leg syndrome Hyperlipidemia Neuropathy Continue home meds Thrombocytopenia: Secondary toAbove, reactive Monitor CBC Labs and medication were reviewed.. Continue same treatment. Continue with symptomatic treatment. Resume home medication. Monitor labs and vitals. DVT and GI prophylaxis. Further recommendations as per clinical course of the patient Dictation was produced using [employer] dictation software. please excuse any grammatical, word or spelling errors. Objective - Vital Signs Vital signs: Vital Signs Temp 98.4 F 09/08/24 13:39 Pulse 76 09/08/24 13:39 Resp 18 09/08/24 13:39 BP 106/59 09/08/24 13:39 Pulse Ox 96 09/08/24 00:37 FiO2 Intake & Output 09/07/24 09/08/24 09/08/24 18:59 06:59 18:59 Intake Total 2160 180 Output Total 225 Balance 1935 180 Weight 63.503 kg Intake: Oral 2160 180 Output: Urine 225 Other: Voiding Method External Catheter External Catheter # Voids 2 - Labs CBC & Chem 7: 09/08/24 05:13 09/08/24 05:13 Labs: Abnormal Lab Results - Last 24 Hours (Table) 09/08/24 09/08/24 Range/Units 05:13 05:13 WBC 14.03 H (4.50-10.00) X 10*3/uL Plt Count 87 L (140-440) X 10*3/uL Immature Gran # 0.11 H (0.00-0.04) X 10*3/uL Neutrophils # 11.52 H (1.80-7.70) X 10*3/uL Eosinophils # 0.42 H (0.04-0.35) X 10*3/uL Crenated Cell 2+ A (None Seen) Glucose 112 H (70-110) mg/dL Calcium 8.5 L (8.7-10.3) mg/dL Total Bilirubin 0.2 L (0.3-1.2) mg/dL Total Protein 5.3 L (6.2-8.2) g/dL Albumin 3.5 L (3.8-4.9) g/dL Microbiology - Last 24 Hours (Table) 09/06/24 23:45 Blood Culture Gram Stain - Preliminary Blood Blood Culture - Preliminary Molecular ID
--- NOTE | 2024-09-08 14:56 | CDI ---
Documentation Clarification Form Date: 09/08/2024 01:52:24 PM From: Willow Prather RN, CCDS Phone: [phone] Admit Date: 09/07/2024 01:54:00 AM Patient Name: Susan Ronquillo Visit Number: [id number] Discharge Date: ATTENTION: The Clinical Documentation Specialists (CDI) and [facility] Coding Staff appreciate your assistance in clarifying documentation. Please respond to the clarification below the line at the bottom and electronically sign. The CDI & [facility] Coding staff will review the response and follow-up if needed. Please note: Queries are made part of the Legal Health Record. If you have any questions, please contact the author of this message via ITS. DoctorChristian Winston Sepsis is documented in the ID consult on 09/07/24 which may lack sufficient clinical evidence/support in the medical record. Additional clarification is requested. History/Risk Factors: Femoral bypass, Hyperlipidemia, Hypertension Clinical Indicators: 74-year-old female present with diffuse swelling redness left lower extremity. She denies any trauma. 09/07 VS: (00:25 86/50 76 18 98.6, (04:46 124/73 86 16 98% RA 09/06 Labs: WBC 16.07, Na 143, Lactic acid 2.1, 09/08 Labs: WBC 14.03 09/07 Doppler: NO DVT 09/07 TIB/FIB XR: Moderate diffuse subcutaneous soft tissue edema 09/07 ID Consult: sepsis in this patient who did have elevated white count elevated lactic acid meeting criteria for SIRS/sepsis source is acute left lower extremity cellulitis with diffuse swelling redness likely Streptococcal disease." Treatment: Cefazolin Sodium 2 GM IVPB Q 8 HRS 09/07-09/08 Vancomycin HCl 2 GM IVPB Q 16 HRS 09/06-09/07 Rocephin 2 GM IVPB Once 09/06 After work up and study, please clarify which diagnosis is most appropriate? [ ] Sepsis is ruled out. The patient had a localized infection without systemic response or organ dysfunction. [x ] Sepsis was initially suspected, but subsequent clinical findings did not support the diagnosis, and it has been ruled out. [ ] Sepsis is clinically supported as evidenced by these additional clinical indicators: [ ] Other, please specify [ ] Unable to determine (Template Last Reviewed: March 2023) MTDD
--- NOTE | 2024-09-09 09:30 | P.PN ---
Subjective Progress Note Date: 09/08/24 Principal diagnosis: Reason for follow-up is left leg cellulitis Patient is a 74-year-old female with a past medical history significant for hypertension hyperlipidemia Parkinson disease previous history of right csasp-ejo-vare amputation because of nonhealing persistent knee infection and did have a history of recurrent left lower extremity cellulitis, the remainder the hospital for another episode of left lower extremity cellulitis. On today's evaluation that is 09/08/2024, the patient continues to be afebrile, the patient is on room air and breathing comfortably, the Pt denies having any chest pain or cough, the patient denies having any abdominal pain no vomiting or any diarrhea pain and swelling to the left lower extremity slightly decreased. Patient white count is down to 14.03 creatinine 0.7 blood culture with staph epi Objective - Vital Signs Vital signs: Vital Signs Temp 98.4 F 09/08/24 13:39 Pulse 76 09/08/24 13:39 Resp 18 09/08/24 13:39 BP 106/59 09/08/24 13:39 Pulse Ox 96 09/08/24 00:37 FiO2 Intake & Output 09/07/24 09/08/24 09/08/24 18:59 06:59 18:59 Intake Total 2160 870 Output Total 225 650 Balance 1935 220 Weight 63.503 kg Intake: Intake, IV Titration 50 Amount ceFAZolin 2 gm In Sodium 50 Chloride 0.9% 50 ml @ 100 mls/hr IVPB [facility]8HR [facility] Rx# :[id number] Oral 2160 820 Output: Urine 225 650 Other: Voiding Method External Catheter External Catheter # Voids 2 - Exam GENERAL DESCRIPTION: An elderly female lying in bed in no distress RESPIRATORY SYSTEM: Unlabored breathing , decreased breath sounds at bases HEART: S1 S2 regular rate and rhythm , ABDOMEN: Soft , no tenderness EXTREMITIES: Left leg swelling redness slightly decreased - Labs CBC & Chem 7: 09/08/24 05:13 09/08/24 05:13 Labs: Abnormal Lab Results - Last 24 Hours (Table) 09/08/24 09/08/24 Range/Units 05:13 05:13 WBC 14.03 H (4.50-10.00) X 10*3/uL Plt Count 87 L (140-440) X 10*3/uL Immature Gran # 0.11 H (0.00-0.04) X 10*3/uL Neutrophils # 11.52 H (1.80-7.70) X 10*3/uL Eosinophils # 0.42 H (0.04-0.35) X 10*3/uL Crenated Cell 2+ A (None Seen) Glucose 112 H (70-110) mg/dL Calcium 8.5 L (8.7-10.3) mg/dL Total Bilirubin 0.2 L (0.3-1.2) mg/dL Total Protein 5.3 L (6.2-8.2) g/dL Albumin 3.5 L (3.8-4.9) g/dL Microbiology - Last 24 Hours (Table) 09/06/24 23:45 Blood Culture Gram Stain - Preliminary Blood Blood Culture - Preliminary Molecular ID Assessment and Plan (1) Sepsis Current Visit: Yes Status: Acute Code(s): A41.9 - SEPSIS, UNSPECIFIED ORGANISM SNOMED Code(s): 27225877 (2) Cellulitis of left leg Current Visit: Yes Status: Acute Code(s): L03.116 - CELLULITIS OF LEFT LOWER LIMB SNOMED Code(s): 16481769772975826 Plan: 1patient presenting to the hospital with sepsis in this patient who did have elevated white count elevated lactic acid meeting criteria for SIRS/sepsis source is acute left lower extremity cellulitis with diffuse swelling redness likely streptococcal disease 2-risk factors include swelling to the left lower extremity Doppler was negative for DVT 3-positive blood culture with staph epi more likely skin contamination 4-patient was to keep-Norman wrap to the left lower extremity to keep the swelling down 5we will treat the patient with cefazolin while inpatient and monitor clinical course closely Dictation was produced using [employer] dictation software. please excuse any grammatical, word or spelling errors. Time with Patient: Less than 30
[2024-09-09 09:32] LABS: HCT 38.2 % (37.2-46.3); HGB 12.3 g/dL (12.0-15.0); MCH 29.4 pg (27.0-32.0); MCHC 32.2 g/dL (32.0-37.0); MCV 91.2 FL (80.0-97.0); Mean Platelet Volume 9.8 FL (9.5-12.2); NRBC Per 100 WBC 0 X 10*3/uL (0.00-0.01); Platelet Count 92 X 10*3/uL (140-440); RBC 4.19 X 10*6/uL (4.10-5.20); WBC 9.21 X 10*3/uL (4.50-10.00)
[2024-09-09 09:38] LABS: ALT 42 U/L (8-44); AST 48 U/L (13-35); Albumin 3.4 g/dL (3.8-4.9); Alkaline Phosphatase 130 U/L (41-126); Blood Urea Nitrogen 6.6 mg/dL (9.0-27.0); Calcium 8.6 mg/dL (8.7-10.3); Carbon Dioxide 21.5 mmol/L (21.6-31.8); Chloride 111 mmol/L (96-109); Glucose 121 mg/dL (70-110); Potassium 3.7 mmol/L (3.5-5.5); Sodium 140 mmol/L (135-145); Total Bilirubin <0.2 mg/dL (0.3-1.2); Total Protein 5.4 g/dL (6.2-8.2)
[2024-09-09 10:11] LABS: Basophils # (A) 0.07 X 10*3/uL (0.00-0.10); Basophils % (A) 0.8 %; Eosinophils # (A) 0.29 X 10*3/uL (0.04-0.35); Eosinophils % (A) 3.1 %; Lymphocytes # (A) 1.16 X 10*3/uL (0.90-5.00); Lymphocytes % (A) 12.6 %; Monocytes # (A) 0.65 X 10*3/uL (0.20-1.00); Monocytes % (A) 7.1 %; Neutrophils # (A) 6.97 X 10*3/uL (1.80-7.70); Neutrophils % (A) 75.6 %
--- NOTE | 2024-09-09 14:37 | P.PN ---
Subjective Progress Note Date: 09/09/24 74-year-old female with past medical history significant for peripheral arterial disease, femoral bypass, hypertension, hyperlipidemia, right AKA, RLS, Parkinson disease who presented to ER with a complaint of left lower extremity swelling pain and edema, tenderness for the last few days. Patient recently had cellulitis of left lower extremity, was admitted to hospital for multiple days and was discharged home. Now presented again with worsening lower extremity pain and swelling redness and tenderness. Patient denied any fever or chills. Patient is afebrile, heart rate 82, respiratory rate 16, blood pressure 112/64, saturating 95% on room air. WBC 16.07, hemoglobin 14.2, platelet 100. BMP unremarkable. Lactic acid 2.1. 45 unremarkable. X-ray left lower extremity showed soft tissue edema Ultrasound venous negative for DVT. 09/08. Patient seen examined. States left lower extremity pain has improved. Denies any fever or chills. 09/09. Patient seen and examined. Labs reviewed showed WBC 9.1, hemoglobin 9.3, sodium 140, potassium 3.7, BUN 6.6, creatinine 0.5. Continues to be afebrile REVIEW OF SYSTEMS: CONSTITUTIONAL: No fever, no malaise,. CARDIOVASCULAR: No chest pain, no palpitations, no syncope. PULMONARY: No shortness of breath, no cough, GASTROINTESTINAL: No diarrhea, no nausea, no vomiting, no abdominal pain. NEUROLOGICAL: No headaches, no weakness, PHYSICAL EXAMINATION: GENERAL: The patient is alert and oriented x3, not in any acute distress. Well developed, well nourished. HEENT: Pupils are round and equally reacting to light. EOMI. No scleral icterus. No conjunctival pallor. Normocephalic, atraumatic. No pharyngeal erythema. No thyromegaly. CARDIOVASCULAR: S1 and S2 present. No murmurs, rubs, or gallops. PULMONARY: Chest is clear to auscultation, no wheezing or crackles. ABDOMEN: Soft, nontender, nondistended, normoactive bowel sounds. No palpable organomegaly. MUSCULOSKELETAL: Right AKA, left lower extremity erythema EXTREMITIES: No cyanosis, clubbing, or pedal edema. NEUROLOGICAL: Gross neurological examination did not reveal any focal deficits. SKIN: No rashes. Assessment and plan Left lower extremity cellulitis: Recently admitted for left lower extremity cellulitis, required IV antibiotics Now presented again with left lower extremity swelling, pain, redness, warmth. Monitor vitals and labs. Antibiotics cefazolin Infectious disease following, recommendations noted from 09/09 Elevate lower extremity Peripheral arterial disease: Hypertension Restless leg syndrome Hyperlipidemia Neuropathy Continue home meds Thrombocytopenia: Secondary toAbove, reactive Monitor CBC Labs and medication were reviewed.. Continue same treatment. Continue with symptomatic treatment. Resume home medication. Monitor labs and vitals. DVT and GI prophylaxis. Further recommendations as per clinical course of the p atient Dictation was produced using [employer] dictation software. please excuse any grammatical, word or spelling errors. Objective - Vital Signs Vital signs: Vital Signs Temp 98.3 F 09/09/24 07:56 Pulse 77 09/09/24 07:56 Resp 16 09/09/24 07:56 BP 128/59 09/09/24 07:56 Pulse Ox 94 L 09/09/24 07:56 FiO2 Intake & Output 09/08/24 09/09/24 09/09/24 18:59 06:59 18:59 Intake Total 1650 Output Total 1150 200 Balance 500 -200 Intake: Intake, IV Titration 50 Amount ceFAZolin 2 gm In Sodium 50 Chloride 0.9% 50 ml @ 100 mls/hr IVPB Q8HR [facility] Rx# :[id number] Oral 1600 Output: Urine 1150 200 Other: Voiding Method External Catheter External Catheter External Catheter - Labs CBC & Chem 7: 09/09/24 04:56 09/09/24 04:56 Labs: Abnormal Lab Results - Last 24 Hours (Table) 09/09/24 09/09/24 Range/Units 04:56 04:56 Plt Count 92 L (140-440) X 10*3/uL Immature Gran # 0.07 H (0.00-0.04) X 10*3/uL Chloride 111 H (96-109) mmol/L Carbon Dioxide 21.5 L (21.6-31.8) mmol/L BUN 6.6 L (9.0-27.0) mg/dL Creatinine 0.5 L (0.6-1.5) mg/dL Glucose 121 H (70-110) mg/dL Calcium 8.6 L (8.7-10.3) mg/dL Total Bilirubin <0.2 L (0.3-1.2) mg/dL AST 48 H (13-35) U/L Alkaline Phosphatase 130 H (41-126) U/L Total Protein 5.4 L (6.2-8.2) g/dL Albumin 3.4 L (3.8-4.9) g/dL Microbiology - Last 24 Hours (Table) 09/06/24 23:45 Blood Culture Gram Stain - Preliminary Blood Blood Culture - Preliminary Molecular ID
--- NOTE | 2024-09-09 15:13 | P.PN ---
Subjective Progress Note Date: 09/09/24 Principal diagnosis: Reason for follow-up is left leg cellulitis Patient is a 74-year-old female with a past medical history significant for hypertension hyperlipidemia Parkinson disease previous history of right ufyyv-zmb-svoj amputation because of nonhealing persistent knee infection and did have a history of recurrent left lower extremity cellulitis, the remainder the hospital for another episode of left lower extremity cellulitis. On today's evaluation that is 09/10/2023, patient did have a temperature of 98.3 F this morning and denies having any chills, patient is on room air and breathing comfortably no chest pain or cough, the patient did not have any n ausea vomiting abdominal pain or any diarrhea pain and swelling to the left lower extremity has decreased. Patient white count normalized to 9.1, creatinine 0.5 Objective - Vital Signs Vital signs: Vital Signs Temp 98.3 F 09/09/24 07:56 Pulse 77 09/09/24 07:56 Resp 16 09/09/24 07:56 BP 128/59 09/09/24 07:56 Pulse Ox 94 L 09/09/24 07:56 FiO2 Intake & Output 09/08/24 09/09/24 09/09/24 18:59 06:59 18:59 Intake Total 1650 Output Total 1150 200 Balance 500 -200 Intake: Intake, IV Titration 50 Amount ceFAZolin 2 gm In Sodium 50 Chloride 0.9% 50 ml @ 100 mls/hr IVPB Q8HR [facility] Rx# :[id number] Oral 1600 Output: Urine 1150 200 Other: Voiding Method External Catheter External Catheter External Catheter - Exam GENERAL DESCRIPTION: An elderly female lying in bed in no distress RESPIRATORY SYSTEM: Unlabored breathing , decreased breath sounds at bases HEART: S1 S2 regular rate and rhythm , ABDOMEN: Soft , no tenderness EXTREMITIES: Left leg swelling redness slightly decreased - Labs CBC & Chem 7: 09/09/24 04:56 09/09/24 04:56 Labs: Abnormal Lab Results - Last 24 Hours (Table) 09/09/24 09/09/24 Range/Units 04:56 04:56 Plt Count 92 L (140-440) X 10*3/uL Immature Gran # 0.07 H (0.00-0.04) X 10*3/uL Chloride 111 H (96-109) mmol/L Carbon Dioxide 21.5 L (21.6-31.8) mmol/L BUN 6.6 L (9.0-27.0) mg/dL Creatinine 0.5 L (0.6-1.5) mg/dL Glucose 121 H (70-110) mg/dL Calcium 8.6 L (8.7-10.3) mg/dL Total Bilirubin <0.2 L (0.3-1.2) mg/dL AST 48 H (13-35) U/L Alkaline Phosphatase 130 H (41-126) U/L Total Protein 5.4 L (6.2-8.2) g/dL Albumin 3.4 L (3.8-4.9) g/dL Assessment and Plan (1) Sepsis Current Visit: Yes Status: Acute Code(s): A41.9 - SEPSIS, UNSPECIFIED ORGANISM SNOMED Code(s): 83112117 (2) Cellulitis of left leg Current Visit: Yes Status: Acute Code(s): L03.116 - CELLULITIS OF LEFT LOWER LIMB SNOMED Code(s): 84285371088518928 Plan: 1patient presenting to the hospital with sepsis in this patient who did have elevated white count elevated lactic acid meeting criteria for SIRS/sepsis source is acute left lower extremity cellulitis with diffuse swelling redness likely streptococcal disease 2-risk factors include swelling to the left lower extremity Doppler was negative for DVT 3-positive blood culture with staph epi more likely skin contamination 4-patient advised to keep-Norman wrap to the left lower extremity to keep the swelling down that will help prevent recurrent episode of cellulitis 5patient did have normalization of white count on cefazolin to continue finishing therapy with oral Keflex Dictation was produced using [employer] dictation software. please excuse any grammatical, word or spelling errors. Time with Patient: Less than 30
--- NOTE | 2024-09-10 17:08 | P.PN ---
Subjective Progress Note Date: 09/10/24 74-year-old female with past medical history significant for peripheral arterial disease, femoral bypass, hypertension, hyperlipidemia, right AKA, RLS, Parkinson disease who presented to ER with a complaint of left lower extremity swelling pain and edema, tenderness for the last few days. Patient recently had cellulitis of left lower extremity, was admitted to hospital for multiple days and was discharged home. Now presented again with worsening lower extremity pain and swelling redness and tenderness. Patient denied any fever or chills. Patient is afebrile, heart rate 82, respiratory rate 16, blood pressure 112/64, saturating 95% on room air. WBC 16.07, hemoglobin 14.2, platelet 100. BMP unremarkable. Lactic acid 2.1. 45 unremarkable. X-ray left lower extremity showed soft tissue edema Ultrasound venous negative for DVT. 09/08. Patient seen examined. States left lower extremity pain has improved. Denies any fever or chills. 09/09. Patient seen and examined. Labs reviewed showed WBC 9.1, hemoglobin 9.3, sodium 140, potassium 3.7, BUN 6.6, creatinine 0.5. Continues to be afebrile 09/10. Patient seen examined. No acute issues overnight. Vital signs stable REVIEW OF SYSTEMS: CONSTITUTIONAL: No fever, no malaise,. CARDIOVASCULAR: No chest pain, no palpitations, no syncope. PULMONARY: No shortness of breath, no cough, GASTROINTESTINAL: No diarrhea, no nausea, no vomiting, no abdominal pain. NEUROLOGICAL: No headaches, no weakness, PHYSICAL EXAMINATION: GENERAL: The patient is alert and oriented x3, not in any acute distress. Well developed, well nourished. HEENT: Pupils are round and equally reacting to light. EOMI. No scleral icterus. No conjunctival pallor. Normocephalic, atraumatic. No pharyngeal erythema. No thyromegaly. CARDIOVASCULAR: S1 and S2 present. No murmurs, rubs, or gallops. PULMONARY: Chest is clear to auscultation, no wheezing or crackles. ABDOMEN: Soft, nontender, nondistended, normoactive bowel sounds. No palpable organomegaly. MUSCULOSKELETAL: Right AKA, left lower extremity erythema EXTREMITIES: No cyanosis, clubbing, or pedal edema. NEUROLOGICAL: Gross neurological examination did not reveal any focal deficits. SKIN: No rashes. Assessment and plan Left lower extremity cellulitis: Recently admitted for left lower extremity cellulitis, required IV antibiotics Now presented again with left lower extremity swelling, pain, redness, warmth. Monitor vitals and labs. Antibiotics cefazolin Infectious disease following, recommendations noted from 09/09 Elevate lower extremity Peripheral arterial disease: Hypertension Restless leg syndrome Hyperlipidemia Neuropathy Continue home meds Thrombocytopenia: Secondary toAbove, reactive Monitor CBC Labs and medication were reviewed.. Continue same treatment. Continue with symptomatic treatment. Resume home medication. Monitor labs and vitals. DVT and GI prophylaxis. Further recommendations as per clinical course of the patient Dictation was produced using [employer] dictation software. please excuse any grammatical, word or spelling errors. Objective - Vital Signs Vital signs: Vital Signs Temp 97.8 F 09/10/24 07:40 Pulse 62 09/10/24 07:40 Resp 16 09/10/24 07:40 BP 154/75 09/10/24 07:40 Pulse Ox 95 09/10/24 07:40 FiO2 Intake & Output 09/09/24 09/10/24 09/10/24 18:59 06:59 18:59 Intake Total 600 Output Total 650 Balance -50 Intake: Intake, IV Titration 120 Amount Sodium Chloride 0.9% 1, 120 000 ml @ 20 mls/hr IV . Q24H [facility] Rx#:[id number] Oral 480 Output: Urine 650 Other: Voiding Method External Catheter External Catheter - Labs CBC & Chem 7: 09/09/24 04:56 09/09/24 04:56 Labs: Microbiology - Last 24 Hours (Table) 09/06/24 23:45 Blood Culture Gram Stain - Preliminary Blood Blood Culture - Preliminary Staphylococcus epidermidis Molecular ID
[2024-09-10] MEDS: GABAPENTIN 100 MG CAP PO PRN (23:13)
[2024-09-11 07:43] VITALS: RESP 18
[2024-09-11 07:53] LABS: Basophils # (A) 0.06 X 10*3/uL (0.00-0.10); Basophils % (A) 1.2 %; Eosinophils # (A) 0.26 X 10*3/uL (0.04-0.35); Eosinophils % (A) 5.2 %; HCT 40.3 % (37.2-46.3); Lymphocytes # (A) 1.46 X 10*3/uL (0.90-5.00); Lymphocytes % (A) 29.3 %; MCH 29.5 pg (27.0-32.0); MCHC 32.3 g/dL (32.0-37.0); MCV 91.6 FL (80.0-97.0); Monocytes # (A) 0.47 X 10*3/uL (0.20-1.00); Monocytes % (A) 9.4 %; NRBC Per 100 WBC 0 X 10*3/uL (0.00-0.01); Neutrophils # (A) 2.69 X 10*3/uL (1.80-7.70); Neutrophils % (A) 54.1 %; Platelet Count 98 X 10*3/uL (140-440); RDW 13.6 % (11.5-14.5); WBC 4.98 X 10*3/uL (4.50-10.00)
[2024-09-11 08:06] LABS: ALT 27 U/L (8-44); AST 44 U/L (13-35); Albumin 3.5 g/dL (3.8-4.9); Albumin/Globulin Ratio 1.52 Ratio (1.60-3.17); Alkaline Phosphatase 131 U/L (41-126); Blood Urea Nitrogen 5.3 mg/dL (9.0-27.0); Calcium 8.9 mg/dL (8.7-10.3); Carbon Dioxide 23.1 mmol/L (21.6-31.8); Chloride 106 mmol/L (96-109); Globulin 2.3 g/dL (1.6-3.3); Glucose 129 mg/dL (70-110); Potassium 4.8 mmol/L (3.5-5.5); Sodium 138 mmol/L (135-145); Total Bilirubin <0.2 mg/dL (0.3-1.2); Total Protein 5.8 g/dL (6.2-8.2)
--- NOTE | 2024-09-11 11:48 | P.PN ---
Subjective Progress Note Date: 09/10/24 Principal diagnosis: Reason for follow-up is left leg cellulitis Patient is a 74-year-old female with a past medical history significant for hypertension hyperlipidemia Parkinson disease previous history of right [id number] amputation because of nonhealing persistent knee infection and did have a history of recurrent left lower extremity cellulitis, the remainder the hospital for another episode of left lower extremity cellulitis. On today's evaluation that is 09/10/2024, Patient is afebrile patient is currently on room air and denies having any shortness of breath, the patient denies any chest pain or cough, the patient denies any nausea vomiting did not h ave any abdominal pain and no diarrhea pain and swelling to the left lower extremity has decreased. No new lab has been obtained today Objective - Vital Signs Vital signs: Vital Signs Temp 98.9 F 09/10/24 14:15 Pulse 70 09/10/24 14:15 Resp 20 09/10/24 14:15 BP 136/61 09/10/24 14:15 Pulse Ox 95 09/10/24 14:15 FiO2 Intake & Output 09/09/24 09/10/24 09/10/24 18:59 06:59 18:59 Intake Total 600 Output Total 650 1100 Balance -50 -1100 Intake: Intake, IV Titration 120 Amount Sodium Chloride 0.9% 1, 120 000 ml @ 20 mls/hr IV . Q24H [facility] Rx#:[id number] Oral 480 Output: Urine 650 1100 Other: Voiding Method External Catheter External Catheter - Exam GENERAL DESCRIPTION: An elderly female lying in bed in no distress RESPIRATORY SYSTEM: Unlabored breathing , decreased breath sounds at bases HEART: S1 S2 regular rate and rhythm , ABDOMEN: Soft , no tenderness EXTREMITIES: Left leg swelling redness slightly decreased - Labs CBC & Chem 7: 09/09/24 04:56 09/09/24 04:56 Labs: Microbiology - Last 24 Hours (Table) 09/06/24 23:45 Blood Culture Gram Stain - Preliminary Blood Blood Culture - Preliminary Staphylococcus epidermidis Molecular ID Assessment and Plan (1) Sepsis Current Visit: Yes Status: Acute Code(s): A41.9 - SEPSIS, UNSPECIFIED ORGANISM SNOMED Code(s): 72829619 (2) Cellulitis of left leg Current Visit: Yes Status: Acute Code(s): L03.116 - CELLULITIS OF LEFT LOWER LIMB SNOMED Code(s): 18316770893037357 Plan: 1patient presenting to the hospital with sepsis in this patient who did have el evated white count elevated lactic acid meeting criteria for SIRS/sepsis source is acute left lower extremity cellulitis with diffuse swelling redness likely streptococcal disease 2-risk factors include swelling to the left lower extremity Doppler was negative for DVT 3-positive blood culture with staph epi more likely skin contamination 4-patient advised to keep-Norman wrap to the left lower extremity to keep the swelling down that will help prevent recurrent episode of cellulitis 5patient did have normalization of white count as of yesterday no CBC was done today patient will be treated with cefazolin and finishing therapy with oral Keflex Dictation was produced using [employer]ation software. please excuse any grammatical, word or spelling errors.
--- NOTE | 2024-09-11 14:12 | P.DS ---
Providers Date of admission: 09/07/24 01:54 Expected date of discharge: 09/11/24 Attending physician: Michael Saucedo Consults: 09/07/24 11:26 Consult Physician Routine Consulting Provider: Kesha Jones Consult Reason/Comments: LLE cellulitis Do you want consulting provider notified?: Yes Primary care physician: Kacy Anderson Hospital Course: Discharge diagnoses; Left lower extremity cellulitis: Patient discharged on Keflex for 1 week Peripheral arterial disease: Hypertension Restless leg syndrome Hyperlipidemia Neuropathy Continue home meds Thrombocytopenia: Monitor CBC Hospital course; 74-year-old female with past medical history significant for peripheral arterial disease, femoral bypass, hypertension, hyperlipidemia, right AKA, RLS, Parkinson disease who presented to ER with a complaint of left lower extremity swelling pain and edema, tenderness for the last few days. Patient recently had cellulitis of left lower extremity, was admitted to hospital for multiple days and was discharged home. Now presented again with worsening lower extremity pain and swelling redness and tenderness. Patient denied any fever or chills. Patient is afebrile, heart rate 82, respiratory rate 16, blood pressure 112/64, saturating 95% on room air. WBC 16.07, hemoglobin 14.2, platelet 100. BMP unremarkable. Lactic acid 2.1. 45 unremarkable. X-ray left lower extremity showed soft tissue edema Ultrasound venous negative for DVT. 09/08. Patient seen examined. States left lower extremity pain has improved. Denies any fever or chills. 09/09. Patient seen and examined. Labs reviewed showed WBC 9.1, hemoglobin 9.3, sodium 140, potassium 3.7, BUN 6.6, creatinine 0.5. Continues to be afebrile 09/10. Patient seen examined. No acute issues overnight. Vital signs stable 09/11. Patient seen examined. Discussed with ID, they recommended starting patient on Keflex 500 mg 3 times daily for 1 week. PHYSICAL EXAMINATION: GENERAL: The patient is alert and oriented x3, ill looking HEENT: Pupils are round and equally reacting to light. EOMI. No scleral icterus. No conjunctival pallor. Normocephalic, atraumatic. No pharyngeal erythema. No thyromegaly. CARDIOVASCULAR: S1 and S2 present. No murmurs, rubs, or gallops. PULMONARY: Chest is clear to auscultation, no wheezing or crackles. ABDOMEN: Soft, nontender, nondistended, normoactive bowel sounds. No palpable organomegaly. MUSCULOSKELETAL: Right AKA, left lower extremity erythema EXTREMITIES: No cyanosis, clubbing, or pedal edema. NEUROLOGICAL: Gross neurological examination did not reveal any focal deficits. SKIN: No rashes. Dictation was produced using [employer] dictation software. please excuse any grammatical, word or spelling errors. Patient Condition at Discharge: Fair Plan - Discharge Summary Discharge Rx Participant: No New Discharge Prescriptions: New Cephalexin [Keflex] 500 mg PO Q8HR 7 Days #21 cap HYDROcodone/APAP 5-325MG [[place] 5-325] 1 each PO Q6HR PRN 3 Days #12 tab PRN Reason: Pain Continue hydrOXYzine HCL [Atarax] 25 mg PO TID PRN PRN Reason: Anxiety Pramipexole [Mirapex] 0.5 mg PO TID Rosuvastatin Calcium 5 mg PO HS Trihexyphenidyl [Artane] 2 mg PO BID Potassium Chloride ER [K-Dur 10] 10 meq PO DAILY Pantoprazole Sodium [Protonix] 20 mg PO DAILY Furosemide [Lasix] 40 mg PO DAILY Clopidogrel [Plavix] 75 mg PO DAILY Gabapentin [Neurontin] 200 mg PO HS PRN PRN Reason: Pain Gabapentin [Neurontin] 100 mg PO BID PRN PRN Reason: Pain Discharge Medication List Clopidogrel [Plavix] 75 mg PO DAILY 08/12/24 [History] Furosemide [Lasix] 40 mg PO DAILY 08/12/24 [History] Gabapentin [Neurontin] 100 mg PO BID PRN 08/12/24 [History] Gabapentin [Neurontin] 200 mg PO HS PRN 08/12/24 [History] Pantoprazole Sodium [Protonix] 20 mg PO DAILY 08/12/24 [History] Potassium Chloride ER [K-Dur 10] 10 meq PO DAILY 08/12/24 [History] Pramipexole [Mirapex] 0.5 mg PO TID 08/12/24 [History] Rosuvastatin Calcium 5 mg PO HS 08/12/24 [History] Trihexyphenidyl [Artane] 2 mg PO BID 08/12/24 [History] hydrOXYzine HCL [Atarax] 25 mg PO TID PRN 08/12/24 [History] Cephalexin [Keflex] 500 mg PO Q8HR 7 Days #21 cap 09/11/24 [Rx] HYDROcodone/APAP 5-325MG [[place] 5-325] 1 each PO Q6HR PRN 3 Days #12 tab 09/11/24 [Rx] Follow up Appointment(s)/Referral(s): Kacy Anderson DO [Primary Care Provider] - 1-2 days Kesha Jones MD [STAFF PHYSICIAN] - 1 Week Discharge Disposition: TRANSFER TO SNF/ECF
[2024-09-11 15:03] VITALS: BP 149/67; PULSE 69; TEMP 98.1
--- NOTE | 2024-09-12 15:58 | P.PN ---
Subjective Progress Note Date: 09/11/24 Principal diagnosis: Reason for follow-up is left leg cellulitis Patient is a 74-year-old female with a past medical history significant for hypertension hyperlipidemia Parkinson disease previous history of right [id number] amputation because of nonhealing persistent knee infection and did have a history of recurrent left lower extremity cellulitis, the remainder the hospital for another episode of left lower extremity cellulitis. On today's evaluation that is 09/11/2024, patient has been afebrile, patient is breathing comfortably and is currently on room air, patient denies having any chest pain and cough, patient denies nausea vomiting or diarrhea and no abdominal pain patient pain is 1 to the left lower extremity has decreased intensity. Patient did have white count of 4.98, creatinine 0.5 Objective - Vital Signs Vital signs: Vital Signs Temp 98.5 F 09/11/24 07:42 Pulse 63 09/11/24 07:42 Resp 18 09/11/24 07:42 BP 149/74 09/11/24 07:42 Pulse Ox 92 L 09/11/24 07:42 FiO2 Intake & Output 09/10/24 09/11/24 09/11/24 18:59 06:59 18:59 Intake Total 540 Output Total 1100 700 Balance -1100 -160 Intake: Oral 540 Output: Urine 1100 700 Other: Voiding Method External Catheter External Catheter - Exam GENERAL DESCRIPTION: An elderly female lying in bed in no distress RESPIRATORY SYSTEM: Unlabored breathing , decreased breath sounds at bases HEART: S1 S2 regular rate and rhythm , ABDOMEN: Soft , no tenderness EXTREMITIES: Left leg swelling redness slightly decreased - Labs CBC & Chem 7: 09/11/24 03:09 09/11/24 03:09 Labs: Abnormal Lab Results - Last 24 Hours (Table) 09/11/24 09/11/24 Range/Units 03:09 03:09 Plt Count 98 L (140-440) X 10*3/uL BUN 5.3 L (9.0-27.0) mg/dL Creatinine 0.5 L (0.6-1.5) mg/dL BUN/Creatinine Ratio 10.60 L (12.00-20.00) Ratio Glucose 129 H (70-110) mg/dL Total Bilirubin <0.2 L (0.3-1.2) mg/dL AST 44 H (13-35) U/L Alkaline Phosphatase 131 H (41-126) U/L Total Protein 5.8 L (6.2-8.2) g/dL Albumin 3.5 L (3.8-4.9) g/dL Albumin/Globulin Ratio 1.52 L (1.60-3.17) Ratio Microbiology - Last 24 Hours (Table) 09/06/24 23:45 Blood Culture Gram Stain - Preliminary Blood Blood Culture - Preliminary Staphylococcus epidermidis Molecular ID Assessment and Plan (1) Sepsis Status: Acute Code(s): A41.9 - SEPSIS, UNSPECIFIED ORGANISM SNOMED Code(s): 71012853 (2) Cellulitis of left leg Status: Acute Code(s): L03.116 - CELLULITIS OF LEFT LOWER LIMB SNOMED Code(s): 65313447594427891 Plan: 1patient presenting to the hospital with sepsis in this patient who did have elevated white count elevated lactic acid meeting criteria for SIRS/sepsis source is acute left lower extremity cellulitis with diffuse swelling redness likely streptococcal disease 2-risk factors include swelling to the left lower extremity Doppler was negative for DVT 3-positive blood culture with staph epi more likely skin contamination 4-patient did have overall improvement to the left lower extremity cellulitis white count normalized he will finish therapy with oral Keflex advised to continue with the compression start to keep the swelling down to prevent recurrent cellulitis Dictation was produced using [employer] dictation software. please excuse any grammatical, word or spelling errors. Time with Patient: Less than 30
== END 2024-09-11 16:17 | disposition home or self-care (01) ==
LOC: EC 16:36 → INTOOBSV 09-07 01:54 → 4SSUR 09-07 01:54 → 5NMEDONC 09-07 17:40 → 4SSUR 09-07 19:35
PROVIDERS: ADMIT Hospitalist; ATTEND Hospitalist
DX: L03.116 Cellulitis of left lower limb (principal); D69.6 Thrombocytopenia, unspecified; G25.81 Restless legs syndrome; G62.9 Polyneuropathy, unspecified; I73.9 Peripheral vascular disease, unspecified; E78.5 Hyperlipidemia, unspecified; F41.9 Anxiety disorder, unspecified; G20.A1 Parkinson's disease without dyskinesia, without mention of fluctuations; I10 Essential (primary) hypertension; Z79.02 Long term (current) use of antithrombotics/antiplatelets; Z79.899 Other long term (current) drug therapy; Z86.718 Personal history of other venous thrombosis and embolism; Z87.891 Personal history of nicotine dependence; Z89.611 Acquired absence of right leg above knee; Z88.6 Allergy status to analgesic agent
CPT/HCPCS: 96366 ×5; 96367 ×2; 96372 ×4; 96375 ×2; 96365 ×2; 99285; 51702; 36415 ×2; 93005; 97161; 97166; 80053 ×4; 83605; 83735 ×2; 84100 ×2; 85025 ×4; 86140; 87040 ×2; 87077; 87186; 73590; 93971; G0378 ×5; J3370; J0690 ×5; J0696; J1650 ×4; J2270 ×2